=== PATIENT | male | born 1985 | race Two or more races ===

== ENCOUNTER 2020-05-13 18:00 | Emergency (ER) | payer SELFPAY ==
[~2020-05-13] VITALS: Ht 170.2 cm; Wt 74.8 kg
[2020-05-13 18:08] VITALS: BP 145/91
[2020-05-13 19:12] LABS: Urine Bacteria NONE SEEN /hpf (None Seen); Urine Blood Negative /uL (Negative); Urine Specific Gravity 1.006 (1.001-1.035); Urine WBC <1 /hpf (0 - 3)
== END 2020-05-13 22:00 | disposition left against medical advice (07) ==
LOC: ER 18:00
DX: R10.10 Upper abdominal pain, unspecified (principal); R51 Headache; R11.0 Nausea; Z53.21 Procedure and treatment not carried out due to patient leaving prior to being seen by health care provider
CPT/HCPCS: 81001